=== PATIENT | female | born 1945 | race Caucasian/White ===

== ENCOUNTER 2021-12-08 10:58 | Outpatient (CLI) | payer MEDICARE ==
[2021-12-08 15:09] LABS: BASOPHILS % (AUTO) 0.4 %; EOSINOPHILS # (AUTO) 0.1 10^3/uL (0.0-0.7); HCT - HEMATOCRIT 39.3 % (37.0-47.0); HGB - HEMOGLOBIN 12.6 g/dL (12.0-16.0); LYMPHOCYTES # (AUTO) 2.1 10^3/uL (1.5-3.5); LYMPHOCYTES % (AUTO) 40.8 %; MEAN CORPUSCULAR HEMOGLOBIN 31.2 pg (27.0-31.0); MEAN CORPUSCULAR HGB CONC 32.1 g/dL (32.0-36.0); MEAN CORPUSCULAR VOLUME 97.3 fL (81.0-99.0); MEAN PLATELET VOLUME 10.5 fL (7.9-10.8); MONOCYTES # (AUTO) 0.6 10^3/uL (0.0-1.0); MONOCYTES % (AUTO) 11.1 %; NEUTROPHILS # (AUTO) 2.3 10^3/uL (1.5-6.6); NEUTROPHILS % (AUTO) 45.5 %; PLT - PLATELET COUNT 249 10^3/uL (130-450); RED BLOOD COUNT 4.04 10^6/uL (4.20-5.40); RED CELL DISTRIBUTION WIDTH 13.8 % (12.0-15.0); WHITE BLOOD COUNT 5.1 x10^3/uL (4.8-10.8)
[2021-12-08 15:30] LABS: THYROID STIMULATING HORMONE 0.74 uIU/mL (0.34-5.60)
[2021-12-08 15:32] LABS: % IRON SATURATION 31 % (20-50); ALBUMIN 3.8 g/dL (3.2-5.5); ALKALINE PHOSPHATASE 44 IU/L (42-121); ALT ALANINE AMINOTRANSFERASE 21 IU/L (10-60); AST ASPARTATE AMINOTRANSFERASE 22 IU/L (10-42); BILIRUBIN,TOTAL 0.8 mg/dL (0.2-1.0); BUN - BLOOD UREA NITROGEN 15 mg/dL (6-20); CALCIUM 9.5 mg/dL (8.5-10.3); CARBON DIOXIDE - CO2 29 mmol/L (21-32); CHLORIDE 101 mmol/L (101-111); CHOL/HDL RATIO 3.8 (<4.4); CHOLESTEROL 253 mg/dL; CREATININE 0.6 mg/dL (0.4-1.0); GFR - MDRD 97 (>89); GLUCOSE 103 mg/dL (70-100); HDL CHOLESTEROL 67 mg/dL; IRON 112 ug/dL (28-170); LDL CHOLESTEROL,CALCULATED 165 mg/dL; LDL/HDL RATIO 2.5 (<4.4); POTASSIUM 3.7 mmol/L (3.5-5.0); SODIUM 137 mmol/L (135-145); TOTAL IRON BINDING CAPACITY 356 ug/dL (250-450); TOTAL PROTEIN 7.5 g/dL (6.7-8.2); TRANSFERRIN 254 mg/dL (192-382); TRIGLYCERIDES 104 mg/dL; VLDL CHOLESTEROL 21 mg/dL
[2021-12-08 15:37] LABS: FERRITIN 138.2 ng/mL (11.0-306.8)
[2021-12-08 15:41] LABS: FOLATE 15.45 ng/mL (5.90 - >24.8)
[2021-12-08 21:32] LABS: ESTIMATED AVERAGE GLUCOSE 120 mg/dL (70-100); HEMOGLOBIN A1c% 5.8 % (4.27-6.07)
== END 2021-12-08 10:59 | disposition home or self-care (01) ==
LOC: LAB.S 10:58
PROVIDERS: ATTEND Internal Medicine
DX: Z00.00 Encounter for general adult medical examination without abnormal findings (principal); E03.8 Other specified hypothyroidism; G60.8 Other hereditary and idiopathic neuropathies; M81.0 Age-related osteoporosis without current pathological fracture; G47.33 Obstructive sleep apnea (adult) (pediatric); E53.8 Deficiency of other specified B group vitamins; E78.5 Hyperlipidemia, unspecified
CPT/HCPCS: 36415; 80053; 80061; 81599; 82306; 82330; 82607; 82728; 82746; 83036; 83540; 83721; 83970; 84443; 84466; 85025

== ENCOUNTER 2022-02-18 08:00 | Outpatient (CLI) | payer MEDICARE ==
--- NOTE | 2022-02-19 08:41 | XRAY Report ---
PROCEDURE: Humerus LT INDICATIONS: LEFT MID HUMERAL PAIN AFTER FALL 3 DAYS AGO TECHNIQUE: 2 views of the humerus were acquired. COMPARISON: None FINDINGS: Bones: No fractures or dislocations. No suspicious bony lesions. Rounded 5 mm calcification just in ferior to the humeral head may reflect small loose body. Soft tissues: No suspicious soft tissue calcifications. IMPRESSION: No fracture or dislocation. No radiopaque foreign body Rounded calcification inferior to the humeral head may reflect intra-articular loose body Reviewed by: Juan Allan MD on 02/19/2022 7:40 AM LISA Approved by: Juan Allan MD on 02/19/2022 7:40 AM LISA Station ID: [id number]
== END 2022-02-18 23:59 | disposition home or self-care (01) ==
LOC: DI.S 08:00
PROVIDERS: ATTEND Physician Assistant
DX: M79.602 Pain in left arm (principal); M25.812 Other specified joint disorders, left shoulder

== ENCOUNTER 2022-04-19 09:29 | Outpatient (CLI) | payer MEDICARE ==
[2022-04-19 15:04] LABS: CHOL/HDL RATIO 2.8 (<4.4); CHOLESTEROL 236 mg/dL; HDL CHOLESTEROL 84 mg/dL; LDL CHOLESTEROL,CALCULATED 137 mg/dL; LDL/HDL RATIO 1.6 (<4.4); TRIGLYCERIDES 77 mg/dL; VLDL CHOLESTEROL 15 mg/dL
[2022-04-19 15:18] LABS: THYROID STIMULATING HORMONE 0.48 uIU/mL (0.34-5.60)
[2022-04-19 15:20] LABS: FREE T4 (FREE THYROXINE) 0.95 ng/dL (0.58-1.64)
[2022-04-19 15:21] LABS: FREE T3 2.75 pg/mL (2.5-3.9)
[2022-04-20 04:08] LABS: VITAMIN D 25-HYDROXY 42.5 ng/mL (30.0-100.0)
== END 2022-04-19 09:30 | disposition home or self-care (01) ==
LOC: LAB.S 09:29
PROVIDERS: ATTEND Internal Medicine
DX: E78.5 Hyperlipidemia, unspecified (principal); M12.9 Arthropathy, unspecified; E03.8 Other specified hypothyroidism; G60.8 Other hereditary and idiopathic neuropathies; E53.8 Deficiency of other specified B group vitamins; E55.9 Vitamin D deficiency, unspecified
CPT/HCPCS: 36415; 80061; 82306; 82607; 83721; 84207; 84439; 84443; 84481; 85651; 86200

== ENCOUNTER 2022-05-23 08:00 | Outpatient (CLI) | payer MEDICARE ==
--- NOTE | 2022-05-23 15:54 | XRAY Report ---
PROCEDURE: Chest 2 View X-Ray INDICATIONS: RESPIRATORY INFECTION TECHNIQUE: 2 view(s) of the chest. COMPARISON: None. FINDINGS: Surgical changes and devices: None. Lungs and pleura: Mild peribronchial opacity is. No airspace consolidation. No pleural effusion or pn eumothorax. Mediastinum: Mediastinal contours are normal. Heart size is normal. Bones and chest wall: No suspicious bony abnormalities. Soft tissues appear unremarkable. IMPRESSION: Mild peribronchial opacity suggestive of airway inflammation. No airspace consolidation. No pleural effusion or pneumothorax. Reviewed by: Liam Sharp MD on 05/23/2022 3:52 PM PDT Approved by: Liam Sharp MD on 05/23/2022 3:52 PM PDT Station ID: [id number]
== END 2022-05-23 23:59 | disposition home or self-care (01) ==
LOC: DI.S 08:00
PROVIDERS: ATTEND Emergency Medicine
DX: B34.9 Viral infection, unspecified (principal)

== ENCOUNTER 2024-04-24 08:20 | Outpatient (CLI) | payer MEDICARE ==
[2024-04-24 15:19] LABS: CHOL/HDL RATIO 2.6 (<4.4); CHOLESTEROL 175 mg/dL; HDL CHOLESTEROL 67 mg/dL; LDL CHOLESTEROL,CALCULATED 87 mg/dL; LDL/HDL RATIO 1.3 (<4.4); TRIGLYCERIDES 104 mg/dL (48-352); VLDL CHOLESTEROL 21 mg/dL
== END 2024-04-24 08:21 | disposition home or self-care (01) ==
LOC: LAB.S 08:20
PROVIDERS: ATTEND Family Medicine
DX: E78.5 Hyperlipidemia, unspecified (principal)
CPT/HCPCS: 36415; 80061; 83721